=== PATIENT | female | born 1950 | race Caucasian/White ===

== ENCOUNTER 2018-04-27 12:38 | Emergency (ER) | payer OTHER ==
[~2018-04-27] VITALS: Ht 154.9 cm; Wt 72.6 kg
[~2018-04-27 12:38] MED LIST: DIAZEPAM10 MG PO
[2018-04-27] MEDS ORDERED: HYZAAR 100-251 EACH (12:57)
[2018-04-27] MEDS ORDERED: TOPROL XL50 MG (12:59)
== END 2018-04-27 14:53 | disposition home or self-care (01) ==
LOC: ER 12:38
DX: J06.9 Acute upper respiratory infection, unspecified (principal)

== ENCOUNTER 2024-03-30 14:19 | Inpatient (IN) | payer OTHER ==
[~2024-03-30] VITALS: Ht 162.6 cm; Wt 70.3 kg
[~2024-03-30 14:19] MED LIST changes: +HYZAAR 100-251 EACH; +TOPROL XL50 MG
[2024-03-30] MEDS ORDERED: 0.9 % SODIUM CHLORIDE 1,000 ML IV SCH ×3 (14:45→23:30)
[2024-03-30] MEDS ORDERED: PIPERACILLIN/TAZOBACTAM SODIUM 3.375 GM VIAL IV ONE (14:45)
[2024-03-30 15:26] LABS: HEMATOCRIT 34.6 % (36.0-45.00); HEMOGLOBIN 11.7 g/dL (12.0-15.00); MEAN CELL VOLUME 92.5 fL (80.00-100.00); MEAN CORPUSCULAR HEMOGLOBIN 31.3 pg (27.00-32.0); MEAN CORPUSCULAR HGB CONC 33.8 g/dl (32.0-36.0); PLATELET COUNT 266 K/uL (150-450); RED BLOOD COUNT 3.74 M/uL (4.00-6.00); RED CELL DISTRIBUTION WIDTH 13.6 % (11.5-14.5)
[2024-03-30 16:15] LABS: INR 1.17; PARTIAL THROMBOPLASTIN TIME 29.5 SECONDS (22.0-34.0); PROTHROMBIN TIME 12.6 SECONDS (9.0-11.5)
[2024-03-30 16:19] LABS: ALBUMIN 3.8 gm/dL (3.4-5.0); BILIRUBIN TOTAL 0.52 mg/dL (0.3-1.2); BILIRUBIN,CONJUGATED 0.14 mg/dL (0.0-0.2); BILIRUBIN,UNCONJUGATED 0.38 mg/dL (0.0-0.6); CALCIUM 9.1 mg/dL (8.5-10.1); CREATININE SERUM 0.72 mg/dL (0.55-1.02); GFR 79.4; GLOBULINA 3.3 G/DL (2.4-3.5); POTASSIUM 3.92 mEq/L (3.5-5.1); TOTAL PROTEIN 7.1 gm/dL (6.4-8.2)
[2024-03-30] MEDS ORDERED: ACETAMINOPHEN 500 MG GEL..CAP PO PRN (17:45)
[2024-03-30] MEDS ORDERED: ONDANSETRON HCL 4 MG in 0.9 % SODIUM CHLORIDE 50 ML IV PRN (17:45)
[2024-03-30] MEDS ORDERED: MORPHINE SULFATE 4 MG/ML CARTRIDGE IV PRN (17:45)
[2024-03-30] MEDS ORDERED: PIPERACILLIN/TAZOBACTAM SODIUM 3.375 GM in DEXTROSE 5 % IN WATER 100 ML IV SCH (18:00)
[2024-03-30] MEDS ORDERED: CEFAZOLIN SODIUM 1,000 MG VIAL ONE (18:44)
[2024-03-30 19:22] LABS: PH,URINE 6.5 (5.0-8.0); URINE APPEARANCE Clear; URINE BACTERIA 23.2 uL (0.0-1933); URINE BILIRRUBIN Negative (NEGATIVE); URINE BLOOD Negative; URINE COLOR Yellow; URINE EPITHELIAL CELLS 3.3 uL (0.0-38.8); URINE GLUCOSE Negative (NEGATIVE); URINE KETONE Negative (NEGATIVE); URINE LEUKOCYTE Trace; URINE NITRATE Negative; URINE PROTEIN Negative (NEGATIVE); URINE RBC 4.5 uL (0.0-20.8); URINE UROBILINOGEN 0.2 E.U./dl; URINE WBC 2.5 uL (0.0-23.2)
[2024-03-30] MEDS ORDERED: BUPIVACAINE HCL/MPF 0.5% 30ML VIAL ONE (20:06)
[2024-03-30] MEDS ORDERED: ISOPROPYL ALCOHOL 30 ML OUNCE TOP ONE (21:30)
[2024-03-30] MEDS ORDERED: CEFAZOLIN SODIUM 1,000 MG VIAL IV ONE (21:30)
[2024-03-30] MEDS ORDERED: BUPIVACAINE HCL 30 ML VIAL IJ ONE (21:30)
[2024-03-30] MEDS ORDERED: hydrALAZINE HCL 20 MG VIAL ONE (21:46)
[2024-03-30] MEDS ORDERED: SUGAMMADEX SODIUM 200 MG/2 ML VIAL IV ONE (22:45)
[2024-03-30] MEDS ORDERED: ONDANSETRON HCL 2 MG/ML VIAL IV PRN (22:45)
[2024-03-30] MEDS ORDERED: MORPHINE SULFATE 4 MG/ML VIAL IV ONE (22:45)
[2024-03-30] MEDS ORDERED: KETOROLAC TROMETHAMINE 30 MG VIAL IV PRN (23:00)
[2024-03-30] MEDS ORDERED: ENALAPRILAT DIHYDRATE 1.25 MG/ML VIAL IV PRN (23:00)
[2024-03-31] MEDS ORDERED: MORPHINE SULFATE 4 MG/ML VIAL IV ONE (00:15)
[2024-03-31 02:40] VITALS: BP 133/73; O2SAT 97
[2024-03-31 06:07] LABS: HEMATOCRIT 30.9 % (36.0-45.00); HEMOGLOBIN 10.6 g/dL (12.0-15.00); MEAN CELL VOLUME 92.8 fL (80.00-100.00); MEAN CORPUSCULAR HEMOGLOBIN 31.7 pg (27.00-32.0); MEAN CORPUSCULAR HGB CONC 34.2 g/dl (32.0-36.0); PLATELET COUNT 241 K/uL (150-450); RED BLOOD COUNT 3.33 M/uL (4.00-6.00)
[2024-03-31 06:45] LABS: ALBUMIN 3.3 gm/dL (3.4-5.0); BILIRUBIN TOTAL 0.43 mg/dL (0.3-1.2); CALCIUM 8.2 mg/dL (8.5-10.1); CREATININE SERUM 0.67 mg/dL (0.55-1.02); GFR 86.27; GLOBULINA 2.7 G/DL (2.4-3.5); POTASSIUM 3.98 mEq/L (3.5-5.1)
[2024-03-31] MEDS ORDERED: FAMOTIDINE/PF 20 MG in 0.9 % SODIUM CHLORIDE 8 ML IV PUSH SCH (09:00)
[2024-03-31 10:07] VITALS: BP 125/68; O2SAT 95
[2024-03-31 17:46] VITALS: BP 144/74
[2024-04-01 02:13] VITALS: BP 155/82; O2SAT 95
[2024-04-01 09:19] VITALS: BP 144/80; O2SAT 97
[2024-04-01 09:20] VITALS: BP 144/80; O2SAT 98
[2024-04-01] MEDS ORDERED: MEPERIDINE HCL 25 MG/ML AMPUL IV STA (09:42)
[2024-04-01] MEDS ORDERED: MEPERIDINE HCL 25 MG/ML AMPUL IV PRN (09:45)
[2024-04-01] MEDS ORDERED: DIATRIZOATE MEGLUMINE, SODIUM 30 ML BOTTLE PO NR (11:30)
[2024-04-01] MEDS ORDERED: METHYLPREDNISOLONE SOD SUCC 40 MG VIAL IV NR (13:30)
[2024-04-01] MEDS ORDERED: DIPHENHYDRAMINE HCL 50 MG/ML VIAL 1ML ONE (13:30)
[2024-04-01] MEDS ORDERED: DIPHENHYDRAMINE HCL 50 MG/ML VIAL 1ML IV NR (13:30)
[2024-04-01] MEDS ORDERED: METHYLPREDNISOLONE SOD SUCC 40 MG VIAL ONE (13:31)
[2024-04-01 15:10] LABS: ALBUMIN 3.2 gm/dL (3.4-5.0); BILIRUBIN TOTAL 0.7 mg/dL (0.3-1.2); CALCIUM 8.1 mg/dL (8.5-10.1); CREATININE SERUM 0.68 mg/dL (0.55-1.02); GFR 84.81; GLOBULINA 2.7 G/DL (2.4-3.5); POTASSIUM 3.62 mEq/L (3.5-5.1); TOTAL PROTEIN 5.9 gm/dL (6.4-8.2)
[2024-04-01 18:38] VITALS: BP 137/72; O2SAT 95
[2024-04-02 01:43] VITALS: BP 149/80; O2SAT 91
[2024-04-02 07:35] LABS: BILIRUBIN TOTAL 0.63 mg/dL (0.3-1.2); CALCIUM 8.5 mg/dL (8.5-10.1); CREATININE SERUM 0.69 mg/dL (0.55-1.02); GFR 83.4; GLOBULINA 2.6 G/DL (2.4-3.5); TOTAL PROTEIN 5.6 gm/dL (6.4-8.2)
[2024-04-02 07:59] LABS: HEMATOCRIT 27.8 % (36.0-45.00); HEMOGLOBIN 9.7 g/dL (12.0-15.00); MEAN CELL VOLUME 93.9 fL (80.00-100.00); MEAN CORPUSCULAR HEMOGLOBIN 32.7 pg (27.00-32.0); MEAN CORPUSCULAR HGB CONC 34.8 g/dl (32.0-36.0); PLATELET COUNT 193 K/uL (150-450); RED BLOOD COUNT 2.96 M/uL (4.00-6.00); RED CELL DISTRIBUTION WIDTH 13.9 % (11.5-14.5)
[2024-04-02 08:11] LABS: POTASSIUM 3.73 mEq/L (3.5-5.1)
[2024-04-02 08:55] VITALS: BP 174/90; O2SAT 97
[2024-04-02 16:40] VITALS: BP 122/71; O2SAT 97
[2024-04-03 01:12] VITALS: BP 133/65; O2SAT 94
[2024-04-03 08:53] VITALS: BP 130/86; O2SAT 99
== END 2024-04-03 15:22 | disposition home or self-care (01) | DRG 419 ==
LOC: ER 14:21 → MEDJ 19:06
PROVIDERS: Emergency Medicine; Internal Medicine; Specialist; Surgery; ADMIT Internal Medicine; ATTEND Internal Medicine
PROC: 0WQF4ZZ Repair Abdominal Wall, Percutaneous Endoscopic Approach (ICD-10-PCS; 2024-03-30)
PROC: 0FT44ZZ Resection of Gallbladder, Percutaneous Endoscopic Approach (ICD-10-PCS; principal; 2024-03-30 18:45)
DX: K80.20 Calculus of gallbladder without cholecystitis without obstruction (principal)